=== PATIENT | male | born 1985 | race Caucasian/White ===

== ENCOUNTER 2016-11-11 10:29 | Emergency (ER) | payer OTHER ==
--- NOTE | 2016-11-11 10:40 | EDM.PDOC ---
ED HPI GENERAL MEDICAL PROBLEM - General Stated Complaint: ABDOMINAL PAIN Time Seen by Provider: 11/11/16 10:37 Source of Information: Reports: Patient History Limitations: Reports: No Limitations - History of Present Illness INITIAL COMMENTS - FREE TEXT/NARRATIVE: HISTORY AND PHYSICAL: []30-year-old male presenting with pain just behind the scrotum extend posteriorly History of Present Illness: []Pain started at work yesterday Denies having any specific injury Denies difficulty with urination Unable to have bowel movement today due to the pain Has never had difficulty such as this previously Review of Systems: As per history of present illness and below otherwise all systems reviewed and negative. Past medical history: As per history of present illness and as reviewed below otherwise noncontributory. Surgical history: As per history of present illness and as reviewed below otherwise noncontributory. Social history: No reported history of drug or alcohol abuse. Family history: As per history of present illness and as reviewed below otherwise noncontributory. Physical exam: Alert and oriented gentleman who does not look toxic. Answering questions appropriately. No difficulty with movement walking into the exam room or with standing and sitting. HEENT: Atraumatic, normocehpalic, pupils reactive, negative for conjunctival pallor or scleral icterus, mucous membranes moist, throat clear, neck supple, nontender, trachea midline. Lungs: Clear to auscultation, breath sounds equal bilaterally, chest non tender. Heart: S1S2, regular, negative for clicks, rubs, or JVD. Abdomen: Soft, nondistended, nontender. Negative for masses or hepatossplenmegaly. Negative for costovertebral tenderness. Pelvis: Stable nontender. Genitourinary: Deferred. Rectal: Exquisitely tender with exam per . No masses were palpable. Extremities: Atraumatic, negative for cords or calf pain. Neurovascular unremarkable. Neuro: Awake, alert, oriented. Cranial nerves II through XII unremarkable. Cerebellum unremarkable. Motor and sensory unremarkable throughout. Exam nonfocal. Discussed with patient results of CT scan and possible probable early rectal abscess, cellulitis start on antibiotic therapy patient is agreeable for this wishes to be outpatient. Discussed with Dr. Kaplan, the patient's CT scan, will initiate IV therapy here with outpatient treatment of Bactrim and Flagyl. Dr. Willson kindly has also seen this patient and reexamined him. Diagnostics: [cbc, cmp, ua,] Therapeutics: [rocephin 1 gm IV] Impression: [early rectal/anal abcess with perineal cellulitis ] Plan: [Discharged to home Cephalexin 500 3 times a day] Definitive disposition and diagnosis as appropriate pending reevaluation and review of above. Onset: Sudden Duration: Day(s): (1), Getting Worse Right Perineal Area Pain Score (Numeric/FACES): 8 - Related Data Allergies Allergy/AdvReac Type Severity Reaction Status Date / Time amoxicillin [From Augmentin] Allergy Hives Verified 11/11/16 10:39 clavulanic acid Allergy Hives Verified 11/11/16 10:39 [From Augmentin] Home Meds: Home Meds Zolpidem [Ambien] 10 mg PO BEDTIME 11/11/16 [History] amLODIPine [Norvasc] 5 mg PO DAILY 11/11/16 [History] ED ROS GENERAL - Review of Systems Review Of Systems: ROS reveals no pertinent complaints other than HPI. ED EXAM, GENERAL - Physical Exam Exam: See Below (see dictation) Course - Vital Signs Last Recorded V/S: Last Vital Signs Temp 36.4 C 11/11/16 10:33 Pulse 123 H 11/11/16 10:33 Resp 20 11/11/16 10:33 BP 149/89 H 11/11/16 10:33 Pulse Ox 100 11/11/16 10:33 - Orders/Labs/Meds Orders: Active Orders 24 hr Category Date Time Status Sodium Chloride 0.9% [Saline Flush] Med 11/11/16 11:17 Active 10 ml FLUSH ASDIRECTED PRN Sodium Chloride 0.9% [Saline Flush] Med 11/11/16 12:53 Active 10 ml FLUSH ASDIRECTED PRN Sodium Chloride 0.9% [Saline Flush] Med 11/11/16 11:17 Active 2.5 ml FLUSH ASDIRECTED PRN Sodium Chloride 0.9% [Saline Flush] Med 11/11/16 12:53 Active 2.5 ml FLUSH ASDIRECTED PRN Saline Lock Insert [OM.PC] Stat Oth 11/11/16 11:17 Ordered Saline Lock Insert [OM.PC] Stat Oth 11/11/16 12:53 Ordered Medication Orders Sodium Chloride (Saline Flush) 10 ml FLUSH ASDIRECTED PRN PRN Reason: Keep Vein Open Sodium Chloride (Saline Flush) 2.5 ml FLUSH ASDIRECTED PRN PRN Reason: Keep Vein Open Sodium Chloride (Saline Flush) 10 ml FLUSH ASDIRECTED PRN PRN Reason: Keep Vein Open Sodium Chloride (Saline Flush) 2.5 ml FLUSH ASDIRECTED PRN PRN Reason: Keep Vein Open Labs: Laboratory Tests 11/11/16 11/11/16 11/11/16 Range/Units 10:42 10:56 10:56 WBC 14.32 H (4.0-11.0) K/uL RBC 5.68 (4.50-5.90) M/uL Hgb 18.6 H (13.0-17.0) g/dL Hct 52.5 H (38.0-50.0) % MCV 92.4 (80.0-98.0) fL MCH 32.7 H (27.0-32.0) pg MCHC 35.4 (31.0-37.0) g/dL RDW Std Deviation 41.5 (28.0-62.0) fl RDW Coeff of Darrel 13 (11.0-15.0) % Plt Count 211 (150-400) K/uL MPV 11.00 (7.40-12.00) fL Neut % (Auto) 78.6 (48.0-80.0) % Lymph % (Auto) 12.2 L (16.0-40.0) % [place] % (Auto) 8.8 (0.0-15.0) % Eos % (Auto) 0.3 (0.0-7.0) % Baso % (Auto) 0.1 (0.0-1.5) % Neut # (Auto) 11.2 H (1.4-5.7) K/uL Lymph # (Auto) 1.8 (0.6-2.4) K/uL [place] # (Auto) 1.3 H (0.0-0.8) K/uL Eos # (Auto) 0.1 (0.0-0.7) K/uL Baso # (Auto) 0.0 (0.0-0.1) K/uL Nucleated RBC % 0.0 /100WBC Nucleated RBCs # 0 K/uL Sodium 139 (136-146) mmol/L Potassium 4.1 (3.5-5.1) mmol/L Chloride 104 (98-110) mmol/L Carbon Dioxide 22 (21-31) mmol/L BUN 11 (6.0-23.0) mg/dL Creatinine 0.8 (0.6-1.5) mg/dL Est Cr Clr Drug Dosing 138.14 mL/min Estimated GFR (MDRD) > 60.0 ml/min Glucose 98 (60-110) mg/dL Calcium 9.7 (8.8-10.8) mg/dL Total Bilirubin 3.1 H (0.1-1.5) mg/dL AST 13 (5-40) IU/L ALT 22 (8-54) IU/L Alkaline Phosphatase 73 (40-150) Total Protein 7.9 (6.0-8.0) g/dL Albumin 4.5 (3.5-5.0) g/dL Globulin 3.4 (2.0-3.5) g/dL Albumin/Globulin Ratio 1.3 (1.3-2.8) Urine Color YELLOW Urine Appearance CLEAR Urine pH 5.5 (5.0-8.0) Ur Specific [place] 1.020 (1.001-1.035) Urine Protein NEGATIVE (NEGATIVE) mg/dL Urine Glucose (UA) NEGATIVE (NEGATIVE) mg/dL Urine Ketones NEGATIVE (NEGATIVE) mg/dL Urine Occult Blood NEGATIVE (NEGATIVE) Urine Nitrite NEGATIVE (NEGATIVE) Urine Bilirubin NEGATIVE (NEGATIVE) Urine Urobilinogen 0.2 (<2.0) EU/dL Ur Leukocyte Esterase NEGATIVE (NEGATIVE) Urine RBC 0-1 (0-2/HPF) Urine WBC 0-2 (0-5/HPF) Ur Epithelial Cells RARE (NONE-FEW) Urine Bacteria RARE (NEGATIVE) Meds: Medications Generic Name Dose Route Start Last Admin Trade Name Freq PRN Reason Stop Dose Admin Sodium Chloride 10 ml 11/11/16 11:17 Saline Flush FLUSH ASDIRECTED PRN Keep Vein Open Sodium Chloride 2.5 ml 11/11/16 11:17 Saline Flush FLUSH ASDIRECTED PRN Keep Vein Open Sodium Chloride 10 ml 11/11/16 12:53 Saline Flush FLUSH ASDIRECTED PRN Keep Vein Open Sodium Chloride 2.5 ml 11/11/16 12:53 Saline Flush FLUSH ASDIRECTED PRN Keep Vein Open Discontinued Medications Generic Name Dose Route Start Last Admin Trade Name Lita PRN Reason Stop Dose Admin Sodium Chloride 1,000 mls @ 999 mls/hr 11/11/16 11:17 11/11/16 13:15 Normal Saline IV 11/11/16 12:17 999 mls/hr STAT ONE Administration Sodium Chloride 1,000 mls @ 999 mls/hr 11/11/16 12:53 Normal Saline IV 11/11/16 13:53 STAT ONE Iopamidol 100 ml 11/11/16 13:32 11/11/16 13:33 Isovue Multipack-370 (76%) IVPUSH 11/11/16 13:33 100 ml ONETIME STA Administration Departure - Departure Time of Disposition: 14:40 Disposition: Home, Self-Care 01 Condition: Fair Clinical Impression: Anal abscess Cellulitis Qualifiers: Site of cellulitis: other site Qualified Code(s): L03.818 - Cellulitis of other sites - Discharge Information Referrals: Cordell Diaz MD [Primary Care Provider] - Holland Kaplan MD [Physician] - Additional Instructions: The following information is given to patients seen in the emergency department who are being discharged to home. This information is to outline your options for follow-up care. We provide all patients seen in our emergency department with a follow-up referral. The need for follow-up, as well as the timing and circumstances, are variable depending upon the specifics of your emergency department visit. If you don't have a primary care physician on staff, we will provide you with a referral. We always advise you to contact your personal physician following an emergency department visit to inform them of the circumstance of the visit and for follow-up with them and/or the need for any referrals to a consulting specialist. The emergency department will also refer you to a specialist when appropriate. This referral assures that you have the opportunity for followup care with a specialist. All of these measure are taken in an effort to provide you with optimal care, which includes your followup. Under all circumstances we always encourage you to contact your private physician who remains a resource for coordinating your care. When calling for followup care, please make the office aware that this follow-up is from your recent emergency room visit. If for any reason you are refused follow-up, please contact the [facility] emergency department at and asked to speak to the emergency department charge nurse. Follow-up with Dr. Kaplan as scheduled - My Orders Last 24 Hours: My Active Orders 11/11/16 11:17 Sodium Chloride 0.9% [Saline Flush] 10 ml FLUSH ASDIRECTED PRN Sodium Chloride 0.9% [Saline Flush] 2.5 ml FLUSH ASDIRECTED PRN Saline Lock Insert [OM.PC] Stat 11/11/16 12:53 Sodium Chloride 0.9% [Saline Flush] 10 ml FLUSH ASDIRECTED PRN Sodium Chloride 0.9% [Saline Flush] 2.5 ml FLUSH ASDIRECTED PRN Saline Lock Insert [OM.PC] Stat - Assessment/Plan Last 24 Hours: My Active Orders 11/11/16 11:17 Sodium Chloride 0.9% [Saline Flush] 10 ml FLUSH ASDIRECTED PRN Sodium Chloride 0.9% [Saline Flush] 2.5 ml FLUSH ASDIRECTED PRN Saline Lock Insert [OM.PC] Stat 11/11/16 12:53 Sodium Chloride 0.9% [Saline Flush] 10 ml FLUSH ASDIRECTED PRN Sodium Chloride 0.9% [Saline Flush] 2.5 ml FLUSH ASDIRECTED PRN Saline Lock Insert [OM.PC] Stat
[2016-11-11] MEDS ORDERED: Sodium Chloride 0.9% 2.5 ML Syringe FLUSH PRN ×2 (11:17→12:53)
[2016-11-11] MEDS ORDERED: Sodium Chloride 0.9% 1,000 ML IV ONE ×2 (11:17→12:53)
[2016-11-11] MEDS ORDERED: Sodium Chloride 0.9% 10 ML Syringe FLUSH PRN ×2 (11:17→12:53)
[2016-11-11 11:36] LABS: CHLORIDE,CL 104 mmol/L (98-110); SODIUM,NA 139 mmol/L (136-146)
--- NOTE | 2016-11-11 12:15 | US ---
EXAMINATION: Soft tissue nonvascular ultrasound of the right perineum HISTORY: Swelling COMPARISON: None TECHNIQUE: Grayscale and color Doppler images obtained within the region of concern. FINDINGS: There is mild skin thickening within the region of concern. No organized fluid collection. No abnormal mass or increased color Doppler flow. IMPRESSION: 1. Mild skin thickening within the region of concern which may represent cellulitis, however no under lying abscess.
[2016-11-11] MEDS ORDERED: Iopamidol 755 MG/ML 500 ML Multipack Bottle IVPUSH STA (13:32)
--- NOTE | 2016-11-11 14:18 | CT ---
CT of the abdomen and pelvis with contrast. HISTORY: Pain TECHNIQUE: Axial CT images were obtained of the abdomen and pelvis following administration of 100 mL of Isovue-370 in the left and without complication. Coronal and sagittal reconstructions obtained. FINDINGS: The lung bases are clear, no pleural effusion. The liver, spleen, adrenal glands, pancreas appear normal. The gallbladder is normal. No bulky retro peritoneal lymphadenopathy or abdominal ascites. The kidneys enhance and function symmetrically without evidence of obstructive uropathy. The large and small bowel are normal in caliber without evidence of obstruction. No focal pericolonic inflammation or stranding. The appendix is normal. No bulky pelvic lymphadenopathy or free pelvic fl uid. The urinary bladder is normal. There is soft tissue induration within the right perineal region measuring approximately 3.3 by 2.1 cm. No suspicious osseous abnormalities identified. IMPRESSION: 1. There is a 3.3 x 2.1 cm area of increased soft tissues density extending along the right gluteal f old into the perineal region. This likely represents a developing perianal abscess. However no discer nible organized fluid collection identified at this time.
[2016-11-11] MEDS ORDERED: cefTRIAXone 1 GM in Premix Bag 1 BAG IV ONE (14:38)
[2016-11-11 15:23] VITALS: BP 139/89
== END 2016-11-11 15:30 | disposition home or self-care (01) ==
LOC: MW.ED 10:29
DX: K61.0 Anal abscess (principal); L03.315 Cellulitis of perineum; Z79.899 Other long term (current) drug therapy; Z88.1 Allergy status to other antibiotic agents
CPT/HCPCS: 36415; 74177; 76857; 80053; 81001; 85025; 96361; 96365; 99284; J0696; J7040; Q9967